=== PATIENT | male | born 1995 | race Hispanic/Latino ===

== ENCOUNTER 2017-03-31 17:08 | Inpatient (IN) | payer BC ==
[~2017-03-31] VITALS: Ht 182.9 cm; Wt 102.2 kg
[2017-03-31] MEDS ORDERED: HEPARIN 25,000 UNIT/D5W 250ML 250 ML IV SCH (17:30)
[2017-03-31] MEDS ORDERED: CIPRO500 MG PO (17:48)
[2017-03-31] MEDS ORDERED: HYDROCHLOROTHIA25 MG PO (17:48)
[2017-03-31 18:31] VITALS: BP 124/77
[2017-03-31 19:15] VITALS: BP 125/77
--- NOTE | 2017-03-31 20:12 | Consultation ---
DATE OF CONSULTATION: March 31, 2017 CARDIAC CONSULTATION REASON FOR CONSULTATION: Chest pain, elevated troponin. HISTORY: A 21-year-old gentleman, very healthy diagnosed with hypertension at age 14 at [facility]. He had extensive workup and he was told that they cannot find any cause, probably there are some renal issue, but it is not substantiated. Patient maintained on hydrochlorothiazide, doing well, very active, very hard working and doing extremely well. Last Thursday, March, the patient had severe fever with temperature of 101. He is having with that myalgia, aches and pains, cough, pleuritic chest pain. He started off having next day diarrhea. He was seen by his PCP and he was given Cipro. Yesterday evening he started having orthopnea, pleuritic cough and unable to catch deep breath. This was painful. He called his physician thinking he had reaction to the Cipro. He was advised to go to the emergency room. He went to [facility] emergency center. His BNP was only 255. His CK 44, MB 44.9 and troponin 7.9. We were unable to open the x-ray, CD brought with the patient sent to x-ray department to close it and put it in the back system. Patient feeling better. His myalgia is improving. His joint aches are improving. His shortness of breath is better. He is still having cough and shortness of breath on exertion as well as pleuritic pericardiac component of chest pain. Patient denied having any anginal chest pain. He denied having any typical anginal type of chest pain. Patient reports having cough along with pleuritic and pericardiac chest pain. No hemoptysis. REVIEW OF SYSTEMS: GENERAL: Fever and chills which are better and subsiding. HEENT: Congestion. PULMONARY: Pleuritic pericardiac chest pain and cough as described above. CARDIAC: As per above. GI: Diarrhea and poor appetite. No nausea. No vomiting. No hematemesis. No melena. : Increased frequency of urination. MUSCULOSKELETAL Aches and pain all over. NEUROLOGIC: The patient on Thursday and Thursday had what seems to be severe neck pain and symptoms to suggest possible some involvement of [employer]INE[employer]; however, this improved and now his neck pain and his photophobia disappeared. There is no seizure activity. There is no localized weakness. SOCIAL HISTORY: He is a student. He is also employed. He is very hard working individual. He is not a smoker and not an alcohol drinker. He does not use any drugs. FAMILY HISTORY: One sibling had "leakage of aortic valve" which improved with aging. He is now 17. He is very active and healthy. Both father and mother with history of hypertension. No congenital heart disease. No family history of cardiomyopathy or sudden cardiac . PAST MEDICAL HISTORY: Hypertension and pilonidal cyst surgery. PHYSICAL EXAMINATION VITALS: Height of 6 feet, weight of 225 pounds. Blood pressure 120/70. Heart rate of 110. Respiratory rate of 18. Temperature of 98 Fahrenheit. GEN: Lying in bed, in mild increase work of breathing HEENT: Pupils are reactive. NECK: No elevation of jugular venous pulsation. CHEST: Shallow breathing. The patient having painful chest with deep inspiration, otherwise clear to auscultation and percussion. HEART: PMI 5th left intercostal space. Normal first and 2nd heart sounds and no rub. ABDOMEN: Soft. No hepatomegaly. No organomegaly. No abdominal bruits. EXTREMITIES: No delay between femoral and carotid pulses. Pulses are palpable and equal. No edema. NEUROLOGIC: Neck is supple. Awake, alert oriented. No motor or sensory deficit. LABORATORY DATA: In the chart, BNP of only 255. White blood cell count elevated at 12.4. Hemoglobin 17.1. Hematocrit 51%. Normal BUN/Creatinine. IMPRESSION 1. Myopericarditis with Acute Systolic Heart Failure. 2. History of hypertension at age 14, questionable cause, followed earlier at [facility]. RECOMMENDATIONS: Cardiac-webb our recommendation is to check an echocardiogram. To observe patient on telemetry and definitely this gentleman needs to go to higher care hospital since his illness is acute. Cycle serial cardiac enzymes. NSAIDs for antiinflammatory relief. All these are discussed with the patient and his family. We will try to obtain transfer with consideration such as cardiac MRI, Endomyocardial biopsy if clinically worsens, advanced cardiac therapies if necessary. Job#: [id number] GH MTDD
[2017-04-01 02:14] VITALS: BP 126/82
[2017-04-01 05:54] VITALS: BP 124/84
[2017-04-01] MEDS ORDERED: ENOXAPARIN SOD INJ 40 MG/0.4 ML SYR SC SCH ×2 (07:15→17:00)
--- NOTE | 2017-04-01 07:45 | History and Physical ---
PRIMARY CARE PHYSICIAN: Dr. Marquez CHIEF COMPLAINT: Shortness of breath. HISTORY OF PRESENT ILLNESS: This is a 21-year-old man who initially developed diarrhea, fever, dizziness, headache, and fatigue over the weekend. Went to his primary care doctor, and was given ciprofloxacin. Took 1 dose and subsequently the patient had difficulty in inhalation. He went to [facility] urgent care facility. There he was found to have markedly elevated troponin of 7.9. He was sent here to the hospital for further evaluation and management. The patient denies any chest pain. Denies any history of heart attack. Denies any family history of coronary artery disease or stroke. The patient admits to some cough and subjective fevers at home. This morning the patient feels a little better. He is noted to be short of breath. Denies any chest pain. PAST MEDICAL HISTORY: Hypertension. PAST SURGICAL HISTORY: removal. ALLERGIES: PER ELECTRONIC MEDICAL RECORDS. FAMILY HISTORY: Hypertension and diabetes mellitus. SOCIAL HISTORY: The patient is single. Drinks occasionally. No cigarette or illicit use. He is currently in school and works part-time. MEDICATIONS: Per electronic medical records. REVIEW OF SYSTEMS: Denies any dizziness or chest pain at this time. PHYSICAL EXAMINATION VITAL SIGNS: Currently, on admission here temperature is 97.5, pulse 67, blood pressure 125/77, respiratory rate 14, and oxygen 99% on room air. GENERAL: In no acute distress. Resting in bed. HEENT: Anicteric. Pupils respond to light. No oral lesions. CARDIOVASCULAR: Normal S1 and S2. LUNGS: Moderate breath sounds. No wheezing. ABDOMEN: Soft, nontender and nondistended. EXTREMITIES: No edema or calf tenderness. NEUROLOGICAL: Alert and oriented times 3. Moves all extremities. SKIN: Dry. PSYCHIATRIC: Normal affect. LABS: Reviewed. MEDICATIONS: Reviewed. ASSESSMENT AND PLAN: This is a 21-year-old man with: 1. Pericarditis/myocarditis: Echocardiogram shows ejection fraction of 40% to 45%, which may be transient. Will need a repeat echocardiogram. He also has mild mitral regurgitation and mild tricuspid regurgitation. His electrocardiogram at the outside facility shows no obvious MD interval changes and no ST-T changes. Will recheck his troponin now. He has sinus tachycardia of 116 beats per minute. Will consider nonsteroidal anti-inflammatory drug for treatment of pericarditis. Will also obtain a TSH. 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 Will need repeat echocardiogram in about 30-40 days. 3. Sinus tachycardia: Improving. Will use low-dose beta shilpa, and will continue with aspirin. 4. Obesity: Body mass index 30.5. Will screen the patient for diabetes. Will obtain a lipid panel. 5. Prophylaxis: Will use Pepcid. Will use Lovenox. 6. Disposition: Monitor closely. Follow up labs this morning. Job#: [id number] NELLY
[2017-04-01 07:49] LABS: CREATINE KINASE MB 10.4 ng/mL (0.00-5.00)
[2017-04-01 07:55] LABS: BASOPHILS % 0.4 % (0.0-1.0); EOSINOPHILS # (AUTO) 0.1 (0.0-0.4); EOSINOPHILS % 0.8 % (0.0-6.0); HEMATOCRIT 43.3 % (38.2-49.6); LYMPHOCYTES # (AUTO) 2.5 (1.0-3.2); LYMPHOCYTES % 27.7 % (18.0-39.1); MEAN CORPUSCULAR HEMOGLOBIN 31.9 pg (28-32); MEAN CORPUSCULAR HGB CONC 34.6 g/dL (31-35); MEAN CORPUSCULAR VOLUME 92.1 fL (81-99); MONOCYTES # (AUTO) 0.6 (0.2-0.8); NEUTROPHILS # (AUTO) 5.7 (2.1-6.9); NEUTROPHILS % 63.9 % (38.7-80.0); PLATELET COUNT 218 x10e3/uL (140-360); RED CELL DISTRIBUTION WIDTH 12.3 % (11.7-14.4); TROPONIN I 4.881 ng/mL (0-0.300)
[2017-04-01 08:01] LABS: CHOL/HDL RATIO 8.4 (3.9-4.7)
[2017-04-01 08:05] VITALS: BP 134/88
[2017-04-01 08:06] LABS: ALANINE AMINOTRANSFERASE 112 IU/L (0-55); ALBUMIN 3.2 g/dL (3.5-5.0); ALBUMIN/GLOBULIN RATIO 0.8 (0.8-2.0); ALKALINE PHOSPHATASE 72 IU/L (40-150); ANION GAP 11.7 mmol/L (8-16); BLOOD UREA NITROGEN 11 mg/dL (7-26); BUN/CREATININE RATIO 10 (6-25); CALCIUM 8.7 mg/dL (8.4-10.2); CARBON DIOXIDE 25 mmol/L (22-29); CHLORIDE 107 mmol/L (98-107); EST GLOMERULAR FILTRATION RATE > 60 ML/MIN (60-); GLUCOSE 88 mg/dL (74-118); POTASSIUM 3.7 mmol/L (3.5-5.1); SODIUM 140 mmol/L (136-145)
[2017-04-01 08:07] LABS: INR 0.94; PARTIAL THROMBOPLASTIN TIME 27.8 seconds (23.8-35.5)
[2017-04-01 08:21] LABS: THYROID STIMULATING HORMONE 1.901 uIU/mL (0.350-4.940)
[2017-04-01] MEDS: FAMOTIDINE 20 MG TAB PO SCH ×2 (08:31→17:04)
[2017-04-01] MEDS: METOPROLOL TARTRATE 25 MG TAB PO SCH ×2 (08:31→20:30)
[2017-04-01] MEDS ORDERED: ASPIRIN 325 MG TAB PO SCH ×2 (09:00→15:00)
[2017-04-01] MEDS: IBUPROFEN 400 MG TAB PO SCH ×2 (11:54→17:05)
[2017-04-01 11:57] VITALS: BP 134/81
[2017-04-01] MEDS ORDERED: IBUPROFEN 600 MG TAB PO SCH (12:00)
[2017-04-01 15:45] VITALS: BP 127/82
[2017-04-01 20:00] VITALS: BP 121/78
[2017-04-02] VITALS: BP 112/69
[2017-04-02 04:00] VITALS: BP 115/71
--- NOTE | 2017-04-02 06:58 | Progress Note ---
DATE: April 02, 2017 TIME: 6:20 a.m. OVERNIGHT: No events. REVIEW OF SYSTEMS: Denies any dizziness or chest pain. PHYSICAL EXAMINATION VITAL SIGNS: Reviewed and within normal limits. GENERAL: A tired-appearing man resting in bed. HEENT: Anicteric. Pupils respond to light. No oral lesions. CARDIOVASCULAR: Normal S1 and S2. LUNGS: Moderate breath sounds. ABDOMEN: Soft, nontender and nondistended. EXTREMITIES: No edema or calf tenderness. NEUROLOGICAL: Alert and oriented times 3. Moving all extremities. SKIN: Dry. PSYCHIATRIC: Normal affect. LABS: Reviewed. MEDICATIONS: Reviewed. ASSESSMENT: A 21-year-old man with: 1. Pericarditis/myocarditis. 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 3. Sinus tachycardia. 4. Obesity: Body mass index is 30.5. 5. Transaminitis. PLAN 1. Continue beta shilpa. 2. Continue ibuprofen. 3. Continue Pepcid. 4. Troponin has reduced to 4.8 now. 5. LDL 101 and triglycerides 125. 6. Recheck LFTs this morning. 7. Discharge planning to [facility]. Job#: [id number] [place]
[2017-04-02 07:52] LABS: ALBUMIN 3.2 g/dL (3.5-5.0); BILIRUBIN,DIRECT 0.3 mg/dL (0.0-5.0)
[2017-04-02 08:03] VITALS: BP 134/88
[2017-04-02] MEDS: FAMOTIDINE 20 MG TAB PO SCH (08:18)
[2017-04-02] MEDS: IBUPROFEN 400 MG TAB PO SCH ×2 (08:18→12:13)
[2017-04-02] MEDS: METOPROLOL TARTRATE 25 MG TAB PO SCH (08:19)
[2017-04-02 12:02] VITALS: BP 114/76
[2017-04-02 13:57] LABS: TROPONIN I 2.006 ng/mL (0-0.300)
[2017-04-02] MEDS ORDERED: CARVEDILOL 3.125 MG TAB PO SCH (17:00)
[2017-04-03] MEDS ORDERED: LISINOPRIL 2.5 MG TAB PO SCH (09:00)
== END 2017-04-02 14:09 | disposition short-term general hospital (02) | DRG 314 ==
LOC: MED/SURG 17:08
PROVIDERS: ADMIT Internal Medicine; ATTEND Internal Medicine
DX: I30.9 Acute pericarditis, unspecified (principal); I50.21 Acute systolic (congestive) heart failure; I42.9 Cardiomyopathy, unspecified; E66.9 Obesity, unspecified; Z68.30 Body mass index [BMI] 30.0-30.9, adult; R74.0 Nonspecific elevation of levels of transaminase and lactic acid dehydrogenase [LDH]; I10 Essential (primary) hypertension
CPT/HCPCS: 36415; 80053; 80061; 80076; 82550; 82553; 83036; 84443; 84484; 85025; 85610; 85730; 93306